=== PATIENT | female | born 1985 | race Caucasian/White ===

== ENCOUNTER 2017-04-25 23:23 | Emergency (ER) | payer MEDICARE ==
[~2017-04-25 23:23] MED LIST: CLARITIN10 MG PO; FOLIC ACID1 MG PO; LATUDA20 MG PO; LEVAQUIN500 MG PO; PERCOCET 7.5-31 EACH PO; PREMARIN1.25 MG PO
[2017-04-25 23:53] LABS: PH,URINE 6.5 (5.0 - 9.0); URINE BILIRUBIN NEGATIVE (NEGATIVE); URINE BLOOD TRACE (NEGATIVE); URINE GLUCOSE (UA) NORMAL (NORMAL); URINE KETONE NEGATIVE (NEGATIVE); URINE LEUKOCYTE ESTERASE 1+ (NEGATIVE); URINE NITRATE NEGATIVE (NEGATIVE); URINE PROTEIN 1+ (NEGATIVE); UROBILINOGEN NORMAL mg/dL (<1.0)
[2017-04-25 23:54] LABS: URINE BACTERIA TRACE (NONE SEEN); URINE RBC 0-5 /[HPF] (0-2)
[2017-04-26 00:17] LABS: BASO % 0.6 % (0.1-1.2); EOS # 0.2 10_X3_uL (0.0-0.4); EOS % 2.5 % (0.7-5.8); GRAN # 4.9 10_X3_uL (1.6-6.1); GRAN % 72.6 % (34.0-71.1); HEMATOCRIT 36.4 % (34-45); LYMPH # 1.2 10_X3_uL (1.2-3.7); LYMPH % 17.3 % (19.3-51.7); MEAN CORPUSCULAR HEMOGLOBIN 29.5 pg (27.0-33.0); MEAN CORPUSCULAR VOLUME 89.4 fL (79-95); MEAN PLATELET VOLUME 9.5 fl (7.5-11.5); MONO # 0.5 10_X3_uL (0.2-0.9); PLATELET COUNT 250 x10_3/uL (182-369); RED BLOOD COUNT 4.07 x10_6/uL (3.9-5.2); RED CELL DISTRIBUTION WIDTH 14.3 % (11.7-14.4); WHITE BLOOD COUNT 6.8 x10_3/uL (4.0-10.0)
== END 2017-04-26 00:40 | disposition home or self-care (01) ==
LOC: ER 23:23
PROVIDERS: Internal Medicine
DX: N39.0 Urinary tract infection, site not specified (principal); R10.31 Right lower quadrant pain; Z90.710 Acquired absence of both cervix and uterus; Z88.6 Allergy status to analgesic agent; Z79.899 Other long term (current) drug therapy
CPT/HCPCS: 36415; 81001; 81025; 85025; 87086; 99070; 99283